=== PATIENT | male | born 2000 | race Caucasian/White ===

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

== ENCOUNTER 2023-07-13 09:59 | Emergency (ER) | payer MEDICAID ==
[~2023-07-13] VITALS: Ht 182.9 cm; Wt 99.8 kg
[2023-07-13] MEDS ORDERED: BENZ-13 PO (10:40)
[2023-07-13 10:46] VITALS: BP 134/82; TEMP 99.2; O2SAT 100
== END 2023-07-13 10:46 | disposition home or self-care (01) ==
LOC: ER 10:12
DX: R05.9 Cough, unspecified (principal); Z60.2 Problems related to living alone

== ENCOUNTER 2023-10-21 17:23 | Emergency (ER) | payer MEDICAID ==
[~2023-10-21] VITALS: Ht 182.9 cm; Wt 99.8 kg
[~2023-10-21 17:23] MED LIST: BENZ-13 PO
[2023-10-21 18:43] VITALS: BP 137/95; TEMP 98.4; O2SAT 98
[2023-10-21] MEDS ORDERED: BENZ-13 PO (19:10)
[2023-10-21] MEDS ORDERED: FLUT12AE5 IH (19:10)
[2023-10-21] MEDS ORDERED: BENZ1LOZ58 PO (19:10)
== END 2023-10-21 19:47 | disposition home or self-care (01) ==
LOC: ER 17:28
DX: R05.9 Cough, unspecified (principal); Z60.2 Problems related to living alone; Z86.16 Personal history of COVID-19